=== PATIENT | male | born 1935 | race Caucasian/White ===

== ENCOUNTER 2018-11-15 12:30 | Inpatient (IN) | payer MEDICARE ==
[2018-11-10 16:43] LABS: BASOPHILS % (AUTO) 0.2 % (0-1); EOSINOPHILS # (AUTO) 0.1 X10'3 (0-0.9); EOSINOPHILS % (AUTO) 1.4 % (0-6); LYMPHOCYTES # (AUTO) 1.8 X10'3 (1.1-4.8); LYMPHOCYTES % (AUTO) 22.6 % (21-51); MEAN CORPUSCULAR HEMOGLOBIN 33.2 PG (27.0-31.0); MEAN CORPUSCULAR HGB CONC 34.6 g/dL (33.0-36.5); MEAN CORPUSCULAR VOLUME 95.9 FL (78-98); MEAN PLATELET VOLUME 6.5 FL (7.4-10.4); MONOCYTES # (AUTO) 0.7 X10'3 (0-0.9); MONOCYTES % (AUTO) 8.2 % (2-12); NEUTROPHILS # (AUTO) 5.5 X10'3 (1.8-7.7); NEUTROPHILS % (AUTO) 67.6 % (42-75); PRE OP HEMATOCRIT 40.8 % (42.0-52.0); PRE OP HEMOGLOBIN 14.1 g/dL (14.0-17.9); PRE OP PLATELET COUNT 395 X10'3 (140-440); RED BLOOD COUNT 4.26 X10'6 (4.70-6.10); RED CELL DISTRIBUTION WIDTH 12.2 % (11.5-14.5)
[2018-11-10 16:48] LABS: CLARITY,URINE CLEAR (Clear); COLOR,URINE YELLOW (Yellow); GLUCOSE, URINE NEGATIVE (Neg); KETONES,URINE NEGATIVE (Neg); LEUKOCYTE ESTERASE ,URINE NEGATIVE (Neg); NITRITES, URINE NEGATIVE (Neg); OCCULT BLOOD,URINE NEGATIVE (Neg); PH,URINE 5.5 (4.8-8.0); PROTEIN,URINE NEGATIVE (Neg); UROBILINOGEN,URINE 0.2 E.U/dL (0.2-1.0)
[2018-11-10 16:49] LABS: UA COLLECTION TYPE CLN CATCH MIDSTREAM
[2018-11-10 16:56] LABS: PRE OP INR 1.1 INR; PRE OP PROTIME 10.9 SECONDS (9.0-12.0)
[2018-11-10 16:59] LABS: ALBUMIN 3.7 G/DL (3.4-5.0); ALKALINE PHOSPHATASE 98 IU/L (46-116); BLOOD UREA NITROGEN 15 MG/DL (7-18); BUN/CREATININE RATIO 14.7 (5.4-32.0); CALCIUM 8.9 MG/DL (8.5-10.1); CHLORIDE 98 MMOL/L (99-107); CREATININE 1.02 MG/DL (0.60-1.10); PRE OP ALT 43 U/L (30-65); PRE OP ANION GAP 8 (8-16); PRE OP AST 28 U/L (10-37); PRE OP BILIRUB, TOTAL 0.8 MG/DL (0.0-1.0); PRE OP GLUCOSE 80 MG/DL (70-104); PRE OP POTASSIUM 4.1 MMOL/L (3.4-5.1); PRE OP SODIUM 132 MMOL/L (135-145); TOTAL CARBON DIOXIDE 25.8 MMOL/L (24-32); TOTAL PROTEIN 7.3 G/DL (6.4-8.2); eGFR 69 ML/MIN
[~2018-11-15] VITALS: Ht 177.8 cm; Wt 79.0 kg
[2018-11-15] MEDS ORDERED: CLOP75TA4 PO (12:41)
[2018-11-16] VITALS (27 sets, daily range): BP systolic 120–166; BP diastolic 52–74
[2018-11-16] MEDS ORDERED: nitroPRUSSIDE in NS 100 ML IV PRN (05:36)
[2018-11-16] MEDS ORDERED: iohexol 350MG/ML 100ml bottle IV ONE (10:32)
[2018-11-16] MEDS ORDERED: cefazolin/dext.iso 2gm/100 ML IV ONE (11:15)
[2018-11-16] MEDS ORDERED: ringers solution, lacted 1,000 ML IV SCH ×2 (11:15→14:15)
[2018-11-16] MEDS ORDERED: famotidine 20mg tablet PO ONE (11:15)
[2018-11-16] MEDS ORDERED: ceFAZolin 1000mg inj ONE (12:36)
[2018-11-16] MEDS ORDERED: heparin 10,000 units/1 ML INJ ONE (12:36)
[2018-11-16] MEDS ORDERED: fentaNYL/PF 50MCG/1 ML 2ML syringe ONE (13:14)
[2018-11-16] MEDS ORDERED: midazolam 2 mg/2 ml injection ONE (13:14)
[2018-11-16] MEDS ORDERED: rocuronium 10mg/ml inj IV ONE (13:15)
[2018-11-16] MEDS ORDERED: propofol inj 20 ML IV ONE (13:15)
[2018-11-16] MEDS ORDERED: sevoflurane 250ml liquid IH ONE (13:26)
[2018-11-16] MEDS ORDERED: nitroPRUSSIDE 20mg/NS 100mL (0.2mg/mL) VIAL IV ONE (13:26)
[2018-11-16] MEDS ORDERED: dexamethasone sod phosphate 10mg/ml inj ONE (13:26)
[2018-11-16] MEDS ORDERED: neostigmine methylsulfate 1 MG/ML 10ml vial ONE ×2 (13:26→15:23)
[2018-11-16] MEDS ORDERED: heparin 1,000unit/ml 10ml vial 10 ML ONE (14:04)
[2018-11-16] MEDS ORDERED: morphine 4 MG/ML inj SYRINge IV PRN ×2 (14:15)
[2018-11-16] MEDS ORDERED: proCHLORperazine 10 MG/2 ml inj IV PRN (14:15)
[2018-11-16] MEDS ORDERED: ondansetron/PF 4mg/2ml inj IV PRN ×2 (14:15→16:00)
[2018-11-16] MEDS ORDERED: meperidine/PF 25mg/ml syringe IV PRN ×2 (14:15)
[2018-11-16] MEDS ORDERED: glycopyrrolate 0.2mg/ml inj ONE (15:23)
[2018-11-16] MEDS ORDERED: protamine sulfate 10mg/ml inj. ONE (15:23)
[2018-11-16] MEDS ORDERED: potassium CL 20mEq in D5-1/2NS 1,000 ML IV SCH (15:58)
--- NOTE | 2018-11-16 16:00 | NUR ---
Received from OR via BED , accompanied by Anesthesiologist DR FELDER and report given by Anesthesiologist. PT DROWSY, DENIES PAIN, RIGHT NECK W/DRSG, SMALL AMT OF BLOODY DRAINAGE AT GERONIMO INSERTION SITE, NECK SOFT, NO S/S OF HEMATOMA OR SWELLING, NEURO CHECKS INTACT, PHENYLEPHRINE AT 5MCG/MIN, VSS, GERONIMO TO BULB SUCTION W/SANGUINOUS DRAINAGE IN BULB. Addendum: 11/16/18 at 1800 by Marielle Hook RN Amended: Links added.
[2018-11-16] MEDS ORDERED: HYDROmorphone inj. 0.5 MG/0.5 ML DISP.SYRIN IV PRN (16:05)
[2018-11-16] MEDS: meperidine/PF 25mg/ml syringe IV PRN ×2 (16:59→17:12)
[2018-11-16] MEDS ORDERED: LIDOcaine 2% 10ml TOPICAL JELLY (Urojet) MM ONE (18:30)
--- NOTE | 2018-11-16 19:00 | NUR ---
PT UNABLE TO VOID, BLADDER SCANNED FOR 1,000 ML URINE, CALL INTO DR EPPERSON UPDATED, ORDERS RECEIVED, PLACED 16 F HAN CATHETER W/ASEPTIC TECHNIQUE FOR A RETURN OF LIGHT YELLOW URINE OF 1140ML, PT TOLERATED WELL. Report called to receiving nurse ÁNGEL. NEURO CHECKS REMAIN UNCHANGED, Transferred via BED ON CM TO ROM 2007, 1 BAG OF PERSONAL Belongings SENT W/PT TO ROOM, RECEIVING RN AT BEDSIDE TO RECEIVE PT, PTS SON NOTIFIED OF TRANSFER. Special Issues communicated to receiving nurse. YES. Addendum: 11/16/18 at 1929 by Marielle Hook RN Amended: Links added.
--- NOTE | 2018-11-16 19:33 | NUR ---
PATIENT VERBAlized that "i feel fine and i do not feel pain just soar." patients son at bedside patient in good spirits talking with son and family members on the cell phone
[2018-11-16] MEDS: phenylephrine inj 20 MG in normal saline 250ml IV soln 250 ML IV PRN (19:50)
[2018-11-16] MEDS: ceFAZolin inj. 1,000 MG in dextrose 5%-water 50ml 50 ML IV SCH (20:15)
[2018-11-16] MEDS ORDERED: atropine 0.1mg/ml 10ml syringe ONE (20:29)
--- NOTE | 2018-11-16 20:30 | NUR ---
recieved report from recovery "noted basil drain dressing is bloody will assess when patient arrives
[2018-11-16 20:59] LABS: BASOPHILS % (AUTO) 0 % (0-1); EOSINOPHILS % (AUTO) 0.1 % (0-6); HEMATOCRIT 41.2 % (42.0-52.0); LYMPHOCYTES # (AUTO) 0.8 X10'3 (1.1-4.8); LYMPHOCYTES % (AUTO) 6.1 % (21-51); MEAN CORPUSCULAR HEMOGLOBIN 32.9 PG (27.0-31.0); MEAN CORPUSCULAR VOLUME 96.8 FL (78-98); MEAN PLATELET VOLUME 6.8 FL (7.4-10.4); MONOCYTES # (AUTO) 0.1 X10'3 (0-0.9); MONOCYTES % (AUTO) 1.1 % (2-12); NEUTROPHILS # (AUTO) 11.8 X10'3 (1.8-7.7); NEUTROPHILS % (AUTO) 92.7 % (42-75); PLATELET COUNT 332 X10'3 (140-440); RED BLOOD COUNT 4.26 X10'6 (4.70-6.10); RED CELL DISTRIBUTION WIDTH 12.3 % (11.5-14.5); WHITE BLOOD COUNT 12.7 X10'3 (4.5-11.0)
[2018-11-16] MEDS ORDERED: morphine 2 MG/ML inj. syringe IV PRN (21:10)
[2018-11-16 21:18] LABS: ALANINE AMINOTRANSFERASE 35 U/L (12-78); ALBUMIN 3.4 G/DL (3.4-5.0); ALBUMIN/GLOBULIN RATIO 0.9 (1.1-1.5); ALKALINE PHOSPHATASE 78 IU/L (46-116); ANION GAP 10 (8-16); ASPARTATE AMINO TRANSFERASE 29 U/L (10-37); BILIRUBIN,TOTAL 0.9 MG/DL (0.1-1.0); BLOOD UREA NITROGEN 13 MG/DL (7-18); CHLORIDE 102 MMOL/L (99-107); CREATININE 0.93 MG/DL (0.60-1.10); GLUCOSE 114 MG/DL (70-104); PARTIAL THROMBOPLASTIN TIME 28 SECONDS (22-32); POTASSIUM 4.3 MMOL/L (3.5-5.1); SODIUM 136 MMOL/L (135-145); TOTAL CARBON DIOXIDE 24.5 MMOL/L (24-32); eGFR 77 ML/MIN
--- NOTE | 2018-11-16 21:30 | NUR ---
patients surgical dressing dry and intact, basil drain showing blood but dried, reienforced dressing with occlusive dressing
[2018-11-17] VITALS (24 sets, daily range): BP systolic 103–167; BP diastolic 51–75
--- NOTE | 2018-11-17 02:05 | NUR ---
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
[2018-11-17 04:57] LABS: BASOPHILS % (AUTO) 0 % (0-1); EOSINOPHILS % (AUTO) 0 % (0-6); HEMATOCRIT 40.4 % (42.0-52.0); HEMOGLOBIN 13.8 g/dl (14.0-17.9); LYMPHOCYTES # (AUTO) 0.8 X10'3 (1.1-4.8); LYMPHOCYTES % (AUTO) 6.6 % (21-51); MEAN CORPUSCULAR HGB CONC 34.2 g/dL (33.0-36.5); MEAN CORPUSCULAR VOLUME 96.5 FL (78-98); MEAN PLATELET VOLUME 7.2 FL (7.4-10.4); MONOCYTES # (AUTO) 0.4 X10'3 (0-0.9); MONOCYTES % (AUTO) 3.1 % (2-12); NEUTROPHILS # (AUTO) 10.6 X10'3 (1.8-7.7); NEUTROPHILS % (AUTO) 90.3 % (42-75); PLATELET COUNT 354 X10'3 (140-440); RED BLOOD COUNT 4.19 X10'6 (4.70-6.10); RED CELL DISTRIBUTION WIDTH 12.6 % (11.5-14.5); WHITE BLOOD COUNT 11.8 X10'3 (4.5-11.0)
[2018-11-17 05:07] LABS: ALANINE AMINOTRANSFERASE 32 U/L (12-78); ALBUMIN 3.1 G/DL (3.4-5.0); ALBUMIN/GLOBULIN RATIO 0.9 (1.1-1.5); ALKALINE PHOSPHATASE 72 IU/L (46-116); ANION GAP 9 (8-16); ASPARTATE AMINO TRANSFERASE 26 U/L (10-37); BILIRUBIN,TOTAL 0.8 MG/DL (0.1-1.0); BLOOD UREA NITROGEN 13 MG/DL (7-18); BUN/CREATININE RATIO 13.4 (5.4-32.0); CALCIUM 8.8 MG/DL (8.5-10.1); CHLORIDE 100 MMOL/L (99-107); CREATININE 0.97 MG/DL (0.60-1.10); GLUCOSE 154 MG/DL (70-104); POTASSIUM 4.2 MMOL/L (3.5-5.1); SODIUM 132 MMOL/L (135-145); TOTAL CARBON DIOXIDE 23.5 MMOL/L (24-32); TOTAL PROTEIN 6.7 G/DL (6.4-8.2); eGFR 74 ML/MIN
[2018-11-17] MEDS: ceFAZolin inj. 1,000 MG in dextrose 5%-water 50ml 50 ML IV SCH (05:21)
[2018-11-17] MEDS: potassium CL 20mEq in D5-1/2NS 1,000 ML IV SCH ×2 (05:26→08:38)
[2018-11-17] MEDS: phenylephrine inj 20 MG in normal saline 250ml IV soln 250 ML IV PRN (09:14)
[2018-11-17] MEDS: HYDROcodone/acetaminophen 10/325mg tab PO PRN ×2 (13:14→19:31)
[2018-11-17] MEDS ORDERED: albumin (Human) 5% 250ml 250 ML IV ONE ×2 (13:25)
--- NOTE | 2018-11-17 17:40 | NUR ---
Tried turning off phenylephrine per provider. B/P did not tolerate. 250cc of NS given per Dr. Robledo. A-line pressures erroneous at systolic of 48. Per Venkat, follow manual b/p. Per Dr. Parker 500cc of 5% albumin infused, then titrate phenylephrine as tolerated. Now at 22mcg. SBP maintained greater than 110 per Venkat. Heart rate low of 43 BPM did not sustain. Provider aware. Rain d/saleem per Elena, pt. due to void by 11/18 1999.
--- NOTE | 2018-11-17 18:45 | NUR ---
Patient in room ICU 2040. I have received report from Romelia BURLESON, and had the opportunity to ask questions and assume patient care.
--- NOTE | 2018-11-17 19:30 | NUR ---
PT and belongings transferred from CICU to 2040. PT tolerated well. VSS. PT receiving 1L O2 to NC, tolerating well, O2 sat >95. PT has A-Line to RT radial, zeroed and transduced to pressure tubing. Rodrigez D/C'd during previous shift, has not been able to void thus far. Drsg to RT neck is CDI, GERONIMO in place with serosanguineous drainage noted in tubing. Bed is locked and low. Call light is within reach. Will continue to monitor.
--- NOTE | 2018-11-17 21:30 | NUR ---
PT c/o needing to void but unable to after multiple attempts. Bladder scanned and resulted 543, CURTAIN STRETCHER Jose notified. Order received to straight cath and if problem continues to replace Rodrigez. PT was straight-cathed and voided 1,000ml. Will continue to monitor.
--- NOTE | 2018-11-17 23:00 | NUR ---
PT sleeping with no s/s of distress noted at this time. VSS. Bed is locked and low. Call light is within reach. Will continue to monitor.
[2018-11-18] VITALS (23 sets, daily range): BP systolic 90–144; BP diastolic 39–81
--- NOTE | 2018-11-18 01:30 | NUR ---
Rodrigez placed d/t pt continued c/o retention and inability to void. Bladder scan performed and resulted 908ml in bladder. Rodrigez placed and PT voided 1,000ml. Asked PT if he has ever had a problem with not being able void, he stated he gets up several timed per night to go to the bathroom, and some times he's and goes just a little. PT tolerated well. Will continue to monitor.
[2018-11-18 05:53] LABS: BASOPHILS % (AUTO) 0.1 % (0-1); EOSINOPHILS # (AUTO) 0.1 X10'3 (0-0.9); EOSINOPHILS % (AUTO) 0.5 % (0-6); HEMATOCRIT 36.5 % (42.0-52.0); HEMOGLOBIN 12.4 g/dl (14.0-17.9); LYMPHOCYTES # (AUTO) 2.3 X10'3 (1.1-4.8); LYMPHOCYTES % (AUTO) 19.2 % (21-51); MEAN CORPUSCULAR HEMOGLOBIN 33.2 PG (27.0-31.0); MEAN CORPUSCULAR HGB CONC 34.1 g/dL (33.0-36.5); MEAN CORPUSCULAR VOLUME 97.3 FL (78-98); MEAN PLATELET VOLUME 7.2 FL (7.4-10.4); MONOCYTES # (AUTO) 1.1 X10'3 (0-0.9); NEUTROPHILS # (AUTO) 8.6 X10'3 (1.8-7.7); NEUTROPHILS % (AUTO) 71.2 % (42-75); PLATELET COUNT 314 X10'3 (140-440); RED BLOOD COUNT 3.75 X10'6 (4.70-6.10); RED CELL DISTRIBUTION WIDTH 12.9 % (11.5-14.5)
[2018-11-18 05:57] LABS: ALANINE AMINOTRANSFERASE 26 U/L (12-78); ALBUMIN 3.3 G/DL (3.4-5.0); ALBUMIN/GLOBULIN RATIO 1.1 (1.1-1.5); ALKALINE PHOSPHATASE 65 IU/L (46-116); ANION GAP 10 (8-16); ASPARTATE AMINO TRANSFERASE 22 U/L (10-37); BILIRUBIN,TOTAL 0.8 MG/DL (0.1-1.0); BLOOD UREA NITROGEN 14 MG/DL (7-18); BUN/CREATININE RATIO 16.3 (5.4-32.0); CALCIUM 8.6 MG/DL (8.5-10.1); CHLORIDE 105 MMOL/L (99-107); CREATININE 0.86 MG/DL (0.60-1.10); GLUCOSE 94 MG/DL (70-104); MAGNESIUM 2.2 MG/DL (1.5-2.4); PHOSPHORUS 3.1 MG/DL (2.3-4.5); POTASSIUM 4.1 MMOL/L (3.5-5.1); SODIUM 138 MMOL/L (135-145); TOTAL CARBON DIOXIDE 23.4 MMOL/L (24-32); TOTAL PROTEIN 6.4 G/DL (6.4-8.2); eGFR 85 ML/MIN
--- NOTE | 2018-11-18 06:30 | NUR ---
Patient in room ICU 2040. I have received report from carol and had the opportunity to ask questions and assume patient care.
--- NOTE | 2018-11-18 06:51 | NUR ---
Patient in room ICU 2040. I have received report from Rosmery BURLESON, and had the opportunity to ask questions and assume patient care.
[2018-11-18] MEDS: potassium CL 20mEq in D5-1/2NS 1,000 ML IV SCH ×3 (08:00→16:00)
[2018-11-18] MEDS: phenylephrine inj 20 MG in normal saline 250ml IV soln 250 ML IV PRN (11:00)
--- NOTE | 2018-11-18 11:00 | NUR ---
pt awake alert, c/o vaughn to dr moore. weaning down bambi- mididrone to be started.
[2018-11-18] MEDS ORDERED: midodrine tablet 2.5 MG TABLET PO SCH (11:35)
[2018-11-18] MEDS: midodrine 5mg tablet PO SCH ×2 (13:11→17:39)
--- NOTE | 2018-11-18 15:00 | NUR ---
to ct and back tolerated well. update to dr hammond- jose manuel gracia dcd, art line dcd/
--- NOTE | 2018-11-18 18:00 | NUR ---
up in chair, no further dizziness. apetite fair
--- NOTE | 2018-11-18 18:30 | NUR ---
Patient in room ICU 2040. I have received report from Rosmery BURLESON, and had the opportunity to ask questions and assume patient care.
--- NOTE | 2018-11-18 20:00 | NUR ---
PT sitting up in chair, ready to get back to bed. Linen changed and personal hygiene performed. PT is a standby assist. PT transferred back to bed. VSS. Cheko is running @ 5mcg/hr. PT on RA, tolerating well, O2 sat > 34%. Rodrigez in place draining to gravity. Bed is locked and low, Call light is within reach. Will continue to monitor.
[2018-11-18] MEDS: clopidogrel 75mg tablet PO SCH (20:45)
--- NOTE | 2018-11-18 23:00 | NUR ---
PT sleeping with no s/s of distress noted at this time. VSS. Bed is locked and low. Call light is within reach. Will continue to monitor.
[2018-11-19] VITALS (21 sets, daily range): BP systolic 92–132; BP diastolic 38–77
--- NOTE | 2018-11-19 03:00 | NUR ---
PT sleeping with no s/s of distress noted at this time. VSS. Bed is locked and low. Call light is within reach. Will continue to monitor.
--- NOTE | 2018-11-19 06:30 | NUR ---
Patient in room ICU 2040. I have received report from thelma and had the opportunity to ask questions and assume patient care.
--- NOTE | 2018-11-19 06:40 | NUR ---
Problems reprioritized. Patient report given, questions answered & plan of care reviewed with Rosmery BURLESON.
--- NOTE | 2018-11-19 06:51 | NUR ---
pt awake and alert, oriented x 4. denies pain or headache. up in chair reading book. sbp stable at present off bambi.
[2018-11-19] MEDS: midodrine 5mg tablet PO SCH ×3 (08:07→23:14)
--- NOTE | 2018-11-19 09:30 | NUR ---
update to dr moore re sbp and inability to void off catheter 2 days ago. pt given the choice to go home with the catheter today or stay and have it removed and started on flomax. he chooses to stay and have it removed. escobar dcd.
--- NOTE | 2018-11-19 10:41 | NUR ---
up with PT to hallway, pt 'felt funny'- sbp to 80's. wc back to room and ambulated to chair- sbp in the 90's. md aware and ok to transfer.
[2018-11-19] MEDS: tamsulosin 0.4mg capsule PO SCH ×2 (12:37→20:54)
--- NOTE | 2018-11-19 16:13 | NUR ---
UP IN CHAIR VS BSC - PASSING FLATUS, NO BM. VOIDING X4, BLADDER SCANNER- 350 CC. AMBULATED AGAIN AROUND UNIT X 2- SBP 120'S. NO DIZZINESS.
[2018-11-19] MEDS: clopidogrel 75mg tablet PO SCH (20:54)
--- NOTE | 2018-11-19 21:15 | NUR ---
Patient in room PCU 3027. I have received report from Mac RN in ICU and had the opportunity to ask questions and assume patient care. Patient brought to PCU by wheelchair. He is alert, oriented and pleasant. Vital signs taken. Oriented to room, call light within reach. All belongings came with him in a patient care bag.
--- NOTE | 2018-11-20 02:15 | NUR ---
BID orders to bladder scan patient. He has put out 700 cc in the past 5 hrs (140mL/hr). Patient refused bladder scan, he just wants to sleep - says he's been up since 6 am and he's tired.
[2018-11-20 03:00] VITALS: BP 91/58
[2018-11-20 06:00] VITALS: BP 92/51
--- NOTE | 2018-11-20 06:29 | NUR ---
Problems reprioritized. Patient report given, questions answered & plan of care reviewed with Brunilda BURLESON.
--- NOTE | 2018-11-20 06:58 | NUR ---
Patient in room U 3027. I have received report from BENJY Goldsmith and had the opportunity to ask questions and assume patient care. Addendum: 11/20/18 at 0659 by Brunilda Mosquera RN report received from BENJY Juarez
[2018-11-20] MEDS: midodrine 5mg tablet PO SCH (07:17)
[2018-11-20] MEDS: tamsulosin 0.4mg capsule PO SCH (07:17)
--- NOTE | 2018-11-20 08:20 | NUR ---
Problems reprioritized. Patient report given, questions answered & plan of care reviewed with BENJY Salmeron.
[2018-11-20] MEDS ORDERED: MIDO5TAB4 PO (10:27)
[2018-11-20] MEDS ORDERED: FLO0.4C PO ×2 (10:27→10:48)
[2018-11-20] MEDS ORDERED: CLOP75TA15 PO (10:27)
--- NOTE | 2018-11-20 11:30 | NUR ---
Patient discharged stable to home with family. Discharge instructions given verbally and written to son and patient. Both verbalized understanding. All personal belongings returned to patient. PIV x2 removed, pressure held til bleeding stopped. Tele box removed and returned to telecom specialist room. New dressing applied to R lower neck wound. Prescriptions phoned to [facility] in [place]. Patient wheeled out via wheelchair to private vehicle.
== END 2018-11-20 11:32 | disposition home or self-care (01) | DRG 39 ==
LOC: EDSTATUS 12:30 → PAS IN 11-16 09:06 → EDSTATUS 11-16 13:15 → CICU 2S 11-16 19:08 → ICU 2S 11-17 19:16 → PCU 3S 11-19 21:13
PROVIDERS: ADMIT Surgery; ATTEND Surgery
PROC: 03CM0ZZ Extirpation of Matter from Right External Carotid Artery, Open Approach (ICD-10-PCS; 2018-11-16)
PROC: 03CK0ZZ Extirpation of Matter from Right Internal Carotid Artery, Open Approach (ICD-10-PCS; 2018-11-16)
PROC: 03UH0KZ Supplement Right Common Carotid Artery with Nonautologous Tissue Substitute, Open Approach (ICD-10-PCS; 2018-11-16)
PROC: 03UK0KZ Supplement Right Internal Carotid Artery with Nonautologous Tissue Substitute, Open Approach (ICD-10-PCS; 2018-11-16)
PROC: 03UM0KZ Supplement Right External Carotid Artery with Nonautologous Tissue Substitute, Open Approach (ICD-10-PCS; 2018-11-16)
PROC: B3251ZZ Computerized Tomography (CT Scan) of Bilateral Common Carotid Arteries using Low Osmolar Contrast (ICD-10-PCS; 2018-11-16)
PROC: B32G1ZZ Computerized Tomography (CT Scan) of Bilateral Vertebral Arteries using Low Osmolar Contrast (ICD-10-PCS; 2018-11-16)
PROC: B3281ZZ Computerized Tomography (CT Scan) of Bilateral Internal Carotid Arteries using Low Osmolar Contrast (ICD-10-PCS; 2018-11-16)
PROC: 03CH0ZZ Extirpation of Matter from Right Common Carotid Artery, Open Approach (ICD-10-PCS; principal; 2018-11-16 13:26)
DX: I65.21 Occlusion and stenosis of right carotid artery (principal); Z88.6 Allergy status to analgesic agent; Z79.899 Other long term (current) drug therapy; Z87.891 Personal history of nicotine dependence; Z86.73 Personal history of transient ischemic attack (TIA), and cerebral infarction without residual deficits; Z86.14 Personal history of Methicillin resistant Staphylococcus aureus infection
CPT/HCPCS: 36415; 70450; 70498; 71046; 80053; 81003; 82948; 83735; 84100; 84439; 84443; 84480; 85025; 85610; 85730; 86885; 86900; 86901; 87081; 88300; 93005; 95813; 95816; 97161; 97530; A4618; A6258; A7000; C1768; C1887; G0378; J0461; J0690; J1100; J1170; J1644; J2175; J2250; J2270; J2370; J2704; J2710; J2720; J3010; J3480; J3490; J7040; J7050; J7060; J7120; P9045; Q9967

== ENCOUNTER 2020-10-24 10:53 | Emergency (ER) | payer MEDICARE ==
[~2020-10-24] VITALS: Ht 177.8 cm; Wt 72.7 kg
[~2020-10-24 10:53] MED LIST: CLOP75TA15 PO; CLOP75TA4 PO; MIDO5TAB4 PO
[2020-10-24] MEDS ORDERED: acetaminophen 325mg tablet PO ONE (11:55)
[2020-10-24 12:09] LABS: BASOPHILS % (AUTO) 0.1 % (0-1); EOSINOPHILS # (AUTO) 0.1 X10'3 (0-0.9); EOSINOPHILS % (AUTO) 0.9 % (0-6); HEMATOCRIT 42.9 % (42.0-52.0); HEMOGLOBIN 14.7 g/dl (14.0-17.9); LYMPHOCYTES # (AUTO) 1.4 X10'3 (1.1-4.8); LYMPHOCYTES % (AUTO) 15.2 % (21-51); MEAN CORPUSCULAR HEMOGLOBIN 33.8 PG (27.0-31.0); MEAN CORPUSCULAR HGB CONC 34.3 g/dL (33.0-36.5); MEAN CORPUSCULAR VOLUME 98.5 FL (78-98); MEAN PLATELET VOLUME 7.3 FL (7.4-10.4); MONOCYTES # (AUTO) 0.8 X10'3 (0-0.9); MONOCYTES % (AUTO) 9.2 % (2-12); NEUTROPHILS # (AUTO) 6.7 X10'3 (1.8-7.7); NEUTROPHILS % (AUTO) 74.6 % (42-75); PLATELET COUNT 293 X10'3 (140-440); RED BLOOD COUNT 4.35 X10'6 (4.70-6.10); RED CELL DISTRIBUTION WIDTH 12.9 % (11.5-14.5)
[2020-10-24 12:14] LABS: PARTIAL THROMBOPLASTIN TIME 26 SECONDS (22-32)
[2020-10-24 12:20] LABS: ALANINE AMINOTRANSFERASE 28 U/L (12-78); ALBUMIN 3.6 G/DL (3.4-5.0); ALKALINE PHOSPHATASE 83 IU/L (46-116); ANION GAP 12 (8-16); ASPARTATE AMINO TRANSFERASE 32 U/L (10-37); BILIRUBIN,TOTAL 0.9 MG/DL (0.1-1.0); BLOOD UREA NITROGEN 15 MG/DL (7-18); BUN/CREATININE RATIO 13.6 (5.4-32.0); CALCIUM 8.7 MG/DL (8.5-10.1); CHLORIDE 105 MMOL/L (99-107); GLUCOSE 95 MG/DL (70-104); POTASSIUM 4.2 MMOL/L (3.5-5.1); SODIUM 138 MMOL/L (135-145); TOTAL CARBON DIOXIDE 20.9 MMOL/L (24-32); TOTAL PROTEIN 7.3 G/DL (6.4-8.2); eGFR 63 ML/MIN
[2020-10-24 14:08] VITALS: BP 144/81
== END 2020-10-24 14:11 | disposition home or self-care (01) ==
LOC: ER 10:53
DX: M25.511 Pain in right shoulder (principal); R06.02 Shortness of breath; R42 Dizziness and giddiness; Z72.89 Other problems related to lifestyle; Z79.899 Other long term (current) drug therapy
CPT/HCPCS: 36415; 71045; 73030; 80053; 83880; 84484; 85025; 85610; 85730; 93005; 99285